=== PATIENT | female | born 1960 | race Hispanic/Latino ===

== ENCOUNTER → 2024-08-29 | Day surgery (SDC) | payer MEDICARE ==
[~2024-08-29] MED LIST: ALPRAZOLAM0.5 M1 PO; ALPRAZOLAM1 MG PO; AMLODIPINE BESYL5 MG PO; ASPIRIN81 MG PO; COLACE100 M1; DICYCLOMINE HCL10 MG PO; EFFEXOR XR 3737.5 MG PO; EPINEPHRINE HCL 1:1000 1ML 1 MG/ML AMP ONE; FLONASE ALLERG9.9 ML INH; LIDOCAINE 1% W/EPINEPHRINE 20 ML VIAL ONE; LORATADINE10 MG PO; LYRICA150 MG PO; MICARDIS20 MG PO; OXYMETAZOLINE HCL 0.05% NAS 1 SPRAY BTL ONE; PROTONIX40 MG/ML PO; PROVERA2.5 MG PO; TIZANIDINE HCL4 MG PO
[2024-08-29] MEDS: LACTATED RINGER'S 1,000 ML ONE (06:33)
[2024-08-29] MEDS: HYDROMORPHONE 1MG/1ML INJ ONE (09:32)
[2024-08-29 10:15] VITALS: BP 136/78; PULSE 79; RESP 18; O2SAT 93
== END | disposition home or self-care (01) ==
LOC: OR 05:34
PROVIDERS: ATTEND Otolaryngology Otolaryngology/Facial Plastic Surgery
DX: D02.0 Carcinoma in situ of larynx (principal); Z87.891 Personal history of nicotine dependence; I10 Essential (primary) hypertension; E78.5 Hyperlipidemia, unspecified; J44.9 Chronic obstructive pulmonary disease, unspecified; F41.9 Anxiety disorder, unspecified; F32.A Depression, unspecified; G89.29 Other chronic pain; K21.9 Gastro-esophageal reflux disease without esophagitis; K58.9 Irritable bowel syndrome, unspecified; K44.9 Diaphragmatic hernia without obstruction or gangrene; Z88.6 Allergy status to analgesic agent; Z88.1 Allergy status to other antibiotic agents; Z88.0 Allergy status to penicillin; Z88.8 Allergy status to other drugs, medicaments and biological substances; Z79.82 Long term (current) use of aspirin; Z79.899 Other long term (current) drug therapy
CPT/HCPCS: 31535; 71046; 88305; J1171; J7121; J0171